=== PATIENT | female | born 1945 | race Caucasian/White ===

== ENCOUNTER 2020-04-26 18:56 | Inpatient (IN) | payer MEDICARE ==
[~2020-04-26] VITALS: Ht 167.6 cm; Wt 70.1 kg
[~2020-04-26 18:56] MED LIST: ACET325 PO; BUPR75; MEGE40T PO; METF500; MISO200 PO; Simvastatin20 MG PO; ZOLOFT50 MG PO
[2020-04-26 19:21] LABS: BASOPHILS ABSOLUTE AUTO 0.01 K/mm3 (0.00-0.23); BASOPHILS PERCENT AUTO 0 % (0-2); EOSINOPHILS ABSOLUTE AUTO 0.01 K/mm3 (0.00-0.68); EOSINOPHILS PERCENT AUTO 0 % (0-6); Hematocrit 40.7 % (33.0-51.0); Hemoglobin 13.5 g/dL (11.5-16.0); IMMATURE GRAN ABSOLUTE AUTO 0.06 K/mm3 (0.00-0.10); IMMATURE GRAN PERCENT AUTO 0 % (0-1); LYMPHOCYTES ABSOLUTE AUTO 0.69 K/mm3 (0.84-5.20); LYMPHOCYTES PERCENT AUTO 5 % (21-46); MONOCYTES ABSOLUTE AUTO 0.87 K/mm3 (0.16-1.47); MONOCYTES PERCENT AUTO 6 % (4-13); Mean Corpuscular HGB 29.6 pg (26.0-34.0); Mean Corpuscular HGB Conc 33.2 g/dL (31.5-36.5); Mean Corpuscular Volume 89 fL (80-100); Mean Platelet Volume 10.8 fL (9.1-12.4); NEUTROPHILS PERCENT AUTO 89 % (41-73); NRBC ABSOLUTE 0.05 K/mm3 (0.00-0.02); NRBC Auto 0.3 /100 WBC (0.0-0.2); Platelet Count 279 K/mm3 (150-400); RDW Standard Deviation 45.1 fL (35.1-46.3); Red Blood Cell Count 4.56 M/mm3 (3.80-5.20); White Blood Cell Count 14.44 K/mm3 (4.00-11.30)
[2020-04-26 19:37] LABS: Alanine Aminotransfer (ALT/SGP 66 U/L (12-78); Albumin, Blood 3.1 g/dL (3.4-5.0); Albumin/Globulin Ratio 0.9 (0.8-1.8); Alk Phos 35 U/L (50-136); Anion Gap 11 mmol/L (6-16); Aspartate Aminotrans (AST/SGOT 37 U/L (12-37); Bilirubin, Total 1.5 mg/dL (0.1-1.0); Blood Urea Nitrogen 28 mg/dL (8-24); Bun/Creatinine Ratio 32.6 (12.0-20.0); CO2, Blood 26 mmol/L (21-32); Calcium, Blood 10.2 mg/dL (8.5-10.1); Chloride, Blood 115 mmol/L (98-108); Creatinine, Blood 0.86 mg/dL (0.40-1.00); Globulin, Blood 3.5 g/dL (2.2-4.0); Glomerular Filtration Rate >60 (60-); Glucose, Blood 120 mg/dL (70-99); Potassium, Blood 3.5 mmol/L (3.5-5.5); Sodium, Blood 152 mmol/L (136-145); Total Protein, Blood 6.6 g/dL (6.4-8.2)
[2020-04-26 20:18] LABS: CPK Creatine Kinase 36 U/L (26-193); Ethanol (Alcohol), Blood, Med <3 mg/dL; Magnesium, Blood 2.6 mg/dL (1.6-2.4); Troponin I 0.018 ng/mL (0.000-0.040)
[2020-04-26 20:19] LABS: Creatine Kinase MB <1.0 ng/mL (0.0-3.6); Creatine Kinase MB Index Unable to Calculate (0.0-4.0)
[2020-04-26 21:06] LABS: Source, Urine Clean Catch
[2020-04-26 21:12] LABS: Appearance, Urine Hazy (Clear); Blood, Urine 1+ (Neg); Color, Urine Brown (P-Yellow); Glucose Qualitative, Urine Neg (Neg); Ketones, Urine 3+ (Neg); Leukocyte Esterase, Urine 1+ (Neg); Nitrite, Urine Pos (Neg); Protein, Urine 2+ (Neg); Urobilinogen, Urine 3+ (Normal)
[2020-04-26 21:13] LABS: Bilirubin, Urine 2+ (Neg)
[2020-04-26 21:23] LABS: Bacteria Mod /hpf; Squamous Epithelial Cells Rare /hpf (Few)
[2020-04-26 21:24] LABS: Amorphous Light (0-Heavy)
[2020-04-26 21:26] LABS: U Amphetamine Screen Not Detected; U Barbituate Screen Not Detected; U Benzodiazapine Screen Not Detected; U Buprenorphine Screen Not Detected; U Cannabinoids Screen Not Detected; U Cocaine Screen Not Detected; U Methadone Screen Not Detected; U Methamphetamine Screen Not Detected; U Opiates Screen Not Detected; U Oxycodone Screen Not Detected; U Phencyclidine Screen Not Detected; U Propoxyphene Screen Not Detected
[2020-04-26] MEDS ORDERED: BUPR100ER PO (21:31)
[2020-04-26] MEDS ORDERED: MEGESTROL400 MG/13 PO (21:32)
--- NOTE | 2020-04-27 05:48 | NUR ---
SHIFT SUMMARY- PT. NEW ADMISSION FROM ED. CONFUSED/AMS, VERY WEAK. FRIEND AND POA ASSISTED WITH ADMISSION HX. PT. ATTEMPTED TO GET OOB 1X LAST NIGHT, ASSISTED BACK INTO BED BY THIS NURSE AND MANAGER PRIMARY. PT. INCONT, ATTENDS IN PLACE. IV FLUIDS INFUSING, TOLERATING WELL. NO COMPLAINTS T/O THE NIGHT. PT. RESTING QUIETLY IN BED, NO APPARENT DISTRESS NOTED. CALL LIGHT WITHI REACH, SIDE RAILS UPX3, AND BED ALARM ON FOR SAFETY. WILL CONT TO MONITOR.
[2020-04-27 05:56] LABS: Alanine Aminotransfer (ALT/SGP 66 U/L (12-78); Albumin/Globulin Ratio 0.9 (0.8-1.8); Alk Phos 34 U/L (50-136); Anion Gap 8 mmol/L (6-16); Aspartate Aminotrans (AST/SGOT 34 U/L (12-37); Bilirubin, Total 1.3 mg/dL (0.1-1.0); Blood Urea Nitrogen 22 mg/dL (8-24); Bun/Creatinine Ratio 33.8 (12.0-20.0); CO2, Blood 26 mmol/L (21-32); Chloride, Blood 112 mmol/L (98-108); Creatinine, Blood 0.65 mg/dL (0.40-1.00); Globulin, Blood 3.3 g/dL (2.2-4.0); Glomerular Filtration Rate >60 (60-); Glucose, Blood 166 mg/dL (70-99); Potassium, Blood 2.7 mmol/L (3.5-5.5); Sodium, Blood 146 mmol/L (136-145); Total Protein, Blood 6.3 g/dL (6.4-8.2)
[2020-04-27 06:17] LABS: BASOPHILS ABSOLUTE AUTO 0.01 K/mm3 (0.00-0.23); BASOPHILS PERCENT AUTO 0 % (0-2); EOSINOPHILS ABSOLUTE AUTO 0.03 K/mm3 (0.00-0.68); EOSINOPHILS PERCENT AUTO 0 % (0-6); Hematocrit 38.6 % (33.0-51.0); IMMATURE GRAN ABSOLUTE AUTO 0.05 K/mm3 (0.00-0.10); IMMATURE GRAN PERCENT AUTO 0 % (0-1); LYMPHOCYTES ABSOLUTE AUTO 1.21 K/mm3 (0.84-5.20); LYMPHOCYTES PERCENT AUTO 9 % (21-46); MONOCYTES ABSOLUTE AUTO 0.67 K/mm3 (0.16-1.47); MONOCYTES PERCENT AUTO 5 % (4-13); Mean Corpuscular HGB 29.8 pg (26.0-34.0); Mean Corpuscular HGB Conc 33.7 g/dL (31.5-36.5); Mean Corpuscular Volume 89 fL (80-100); Mean Platelet Volume 10.9 fL (9.1-12.4); NEUTROPHILS ABSOLUTE AUTO 12.14 K/mm3 (1.96-9.15); NEUTROPHILS PERCENT AUTO 86 % (41-73); NRBC ABSOLUTE 0.02 K/mm3 (0.00-0.02); NRBC Auto 0.1 /100 WBC (0.0-0.2); Platelet Count 264 K/mm3 (150-400); RDW Coefficient Variation 13.9 % (11.7-14.2); RDW Standard Deviation 44.5 fL (35.1-46.3); Red Blood Cell Count 4.36 M/mm3 (3.80-5.20); White Blood Cell Count 14.11 K/mm3 (4.00-11.30)
[2020-04-27 08:14] LABS: Campylobacter Sp Not Detected (NOT DETECT)
[2020-04-27 08:15] LABS: Adenovirus F 40/41 Not Detected (NOT DETECT); Astrovirus Not Detected (NOT DETECT); Cryptosporidium Not Detected (NOT DETECT); Cyclospora Cayetanensis Not Detected (NOT DETECT); E. Coli O157 Not Detected (NOT DETECT); Entamoeba Histolytica Not Detected (NOT DETECT); Enteroaggregative E. coli-EAEC Not Detected (NOT DETECT); Enteropathogenic E. coli-EPEC Not Detected (NOT DETECT); Enterotoxigenic E. coli-ETEC Not Detected (NOT DETECT); Giardia Lamblia Not Detected (NOT DETECT); Norovirus GI/GII Not Detected (NOT DETECT); Plesiomonas Shigelloides Not Detected (NOT DETECT); Rotavirus A Not Detected (NOT DETECT); Salmonella Sp Not Detected (NOT DETECT); Sapovirus Not Detected (NOT DETECT); Shiga Toxin-prod E. coli-STEC Not Detected (NOT DETECT); Shigella/Enteroin E. coli-EIEC Not Detected (NOT DETECT); Vibrio Cholerae Not Detected (NOT DETECT); Vibrio Sp Not Detected (NOT DETECT); Yersinia Enterocolitica Not Detected (NOT DETECT)
[2020-04-27 10:53] LABS: Anion Gap 11 mmol/L (6-16); Blood Urea Nitrogen 18 mg/dL (8-24); Bun/Creatinine Ratio 27.4 (12.0-20.0); CO2, Blood 24 mmol/L (21-32); CPK Creatine Kinase 44 U/L (26-193); Calcium, Blood 8.8 mg/dL (8.5-10.1); Chloride, Blood 110 mmol/L (98-108); Creatinine, Blood 0.66 mg/dL (0.40-1.00); Glomerular Filtration Rate >60 (60-); Glucose, Blood 151 mg/dL (70-99); Potassium, Blood 3.2 mmol/L (3.5-5.5); Sodium, Blood 145 mmol/L (136-145)
--- NOTE | 2020-04-27 15:47 | NUR ---
SHIFT SUMMARY PT OPENS HER EYES TO HER NAME BUT IS NOT ALERT OR ORIENTED. SHE HAS BEEN SLEEPING ALL DAY. SHE HAS NO SIGNS OF PAIN OR DISTRESS. IV FLUIDS/MEDS INFUSED ORDERED WITH NO ISSUE. SHE HAS BEEN INC OF B/B THROUGHOUT THE SHIFT. HER POA/CAREGIVER HAS CALLED TWICE FOR AN UPDATE AND REPORTED THAT SHE HAS BEEN GETTING INCREASING WORSE OVER THE LAST FEW WEEKS WHICH IS WHAT PROMTED HER TO BRING HER TO THE ER. THE PT IS NOT ABLE TO MAKE HER NEEDS KNOWN, FREQUENT NURSE ROUNDING HAS BEEN DONE AND SHE HAS THE BED ALARM ON FOR SAFETY.
[2020-04-27 17:20] LABS: Anion Gap 11 mmol/L (6-16); Blood Urea Nitrogen 16 mg/dL (8-24); CO2, Blood 24 mmol/L (21-32); Calcium, Blood 9.2 mg/dL (8.5-10.1); Chloride, Blood 112 mmol/L (98-108); Creatinine, Blood 0.67 mg/dL (0.40-1.00); Glomerular Filtration Rate >60 (60-); Glucose, Blood 125 mg/dL (70-99); Sodium, Blood 147 mmol/L (136-145)
--- NOTE | 2020-04-27 21:23 | NUR ---
UNABLE TO GIVE PO MEDICATION AT BEDTIME PATIENT IS TOO SOMNOLENT. ONLY OPENING HER EYES TO LOUD VOICE AND GENTLE CHEST RUB, THEN TURNING HEAD BCK TO SIDE AND CLOSING HER EYES AGAIN. NON VERBAL DURING ASSESSMENT.
--- NOTE | 2020-04-28 00:57 | NUR ---
REPORT TO Shruthi ARCE RN WHO WILL BE ACCEPTING PATIENT INTO ROOM 329
--- NOTE | 2020-04-28 01:03 | NUR ---
PT TRANSERRED FROM SCU 348 TO RM 329. REPORT TAKEN FROM FLORESITA MOLINA RN TO ASSUME CARE OF PT AT THIS TIME. PT SLEEPING WITHOUT DISTRESS. PT TRANSERRED TO ROOM 329 WITHOUT EVENT. WILL CONTINUE TO MONITOR.
--- NOTE | 2020-04-28 05:10 | NUR ---
SHIFT SUMMARY PT TRANSFERRED FROM SCU RM 348 TO RM 329. ASSUMED CARE OF PT AT 0100. REPORT I RECEIVED FROM OFF GOING NURSE IS THAT PT HAS BEEN SOMNOLENT, BUT RESPONDS TO STERNAL RUB AND QUICKLY FALLS BACK TO SLEEP. AROUND 0300 I CALLED PT NAME SHE OPENED BOTH EYES AND RESPONDED. I ASKED PT IF SHE NEEDED ANYTHING AND SHE COHERENTLY REPLIED THAT SHE DID NOT. PT NEURO STATUS SEEMS TO BE IMPROVING. HOWEVER SHE STILL IS VERY DROWSY. VITALS ARE STABLE, AND THERE HAVE BEEN NO ACUTE CHANGES SINCE ASSUMING CARE. BED IN LOWEST POSITION, CALL LIGHT WITHIN REACH.
[2020-04-28 05:25] LABS: Anion Gap 12 mmol/L (6-16); Blood Urea Nitrogen 16 mg/dL (8-24); Bun/Creatinine Ratio 24.3 (12.0-20.0); CO2, Blood 22 mmol/L (21-32); Calcium, Blood 9.1 mg/dL (8.5-10.1); Chloride, Blood 111 mmol/L (98-108); Creatinine, Blood 0.66 mg/dL (0.40-1.00); Glomerular Filtration Rate >60 (60-); Glucose, Blood 108 mg/dL (70-99); Magnesium, Blood 2.1 mg/dL (1.6-2.4); Potassium, Blood 3.2 mmol/L (3.5-5.5); Sodium, Blood 145 mmol/L (136-145)
--- NOTE | 2020-04-28 11:54 | NUR ---
PTS FRIEND DIMAS INTO VISIT, REPORTS THAT PTS KATHRYN CLARK WILL BE INTO SEE PT TOMORROW.
--- NOTE | 2020-04-28 18:20 | NUR ---
SHIFT SUMMARY PT SLEPT MOST OF SHIFT, DOES AROUSE TO NAME AND OPENS EYES WHEN SPOKEN TO BUT QUICKLY FALLS BACK ASLEEP. WAS ABLE TO STATE NAME AND BIRTHDAY, AND REPLY NO OR YES TO A FEW QUESTIONS. DOESNT FOLLOW COMMANDS. ATTENDS AND POSITION CHANGED PRN. VSS. NO ACUTE CHANGES THIS SHIFT. PATIENTS MARC BUITRAGO CALLED THIS EVENING, SHE HAS ARRIVED INTO THE AREA AND WILL BE INTO VISIT TOMORROW. HER PHONE NUMBER IS [phone].
--- NOTE | 2020-04-29 04:49 | NUR ---
MACHINE SET UP OPERATOR SUMMARY PT A/O X1 TO SELF. PT HAS BEEN SOMNOLENT ALL SHIFT, HOWEVER AROUSIBLE TO SOUND. PT IS ABLE TO SHAKE HEAD FOR YES OR NO QUESTIONS AND MOANS WHENEVER REPOSITIONED. REPOSITIONED FREQUENTLY THROUGHOUT THE NIGHT. SHE DENIES PAIN BY SHAKING HER HEAD. VSS. NO ACUTE CHANGES.
[2020-04-29 06:01] LABS: Anion Gap 11 mmol/L (6-16); Blood Urea Nitrogen 17 mg/dL (8-24); Bun/Creatinine Ratio 23.7 (12.0-20.0); CO2, Blood 23 mmol/L (21-32); Calcium, Blood 9.1 mg/dL (8.5-10.1); Chloride, Blood 113 mmol/L (98-108); Creatinine, Blood 0.72 mg/dL (0.40-1.00); Glomerular Filtration Rate >60 (60-); Glucose, Blood 88 mg/dL (70-99); Potassium, Blood 3.3 mmol/L (3.5-5.5); Sodium, Blood 147 mmol/L (136-145)
--- NOTE | 2020-04-29 19:08 | NUR ---
SHIFT SUMMARY. PT UNRESPONSIIVE, MOANS AT TIMES, EYES MOSTLY CLOSED. PT IS INCONTINENT, TURNED Q2H. PT'S NEICE FROM OUT OF STATE IN TO SEE PT, SHE PRESENTED ADVANCED DIRECTIVE THAT SHOWS NO PORTABLE TRACK CREW CHIEF FEEDING TUBES, PT TO BE STARTED ON CLINIMIX. FAMILY IS REQUESTING THAT PT'S FRIEND DIMAS NOT HAVE ANY FURTHER INFORMATION RELEASED TO HER AT THIS TIME. PT AND NEICE SEEN BY CM THIS AFTERNOON. NO NEW CHANGES.
--- NOTE | 2020-04-29 21:09 | NUR ---
PHYSICIAN COMMUNICATION CONTACTED FUR DRESSING SUPERVISOR PHYSICIAN, DR POWELL, TO INFORM HIM THAT THE PATIENT HAD 1195 ML OF URINE IN HER BLADDER PER BLADDER SCAN AND TO ASK FOR A GUERRA CATHETER FOR THE PATIENT. DR POWELL ORDERED THE GUERRA.
[2020-04-29 22:43] LABS: Source, Urine Catheter
[2020-04-29 22:46] LABS: Bilirubin, Urine Neg (Neg); Blood, Urine 3+ (Neg); Glucose Qualitative, Urine Neg (Neg); Ketones, Urine 2+ (Neg); Leukocyte Esterase, Urine 1+ (Neg); Nitrite, Urine Neg (Neg); Protein, Urine 1+ (Neg); Urobilinogen, Urine NORM (Normal)
[2020-04-29 22:52] LABS: Appearance, Urine Clear (Clear); Color, Urine Amber (P-Yellow)
[2020-04-29 22:53] LABS: Amorphous Light (0-Heavy); Bacteria Few /hpf; Mucus Light (0-Heavy); Squamous Epithelial Cells Not Seen /hpf (Few)
[2020-04-30 05:09] LABS: Anion Gap 8 mmol/L (6-16); Blood Urea Nitrogen 16 mg/dL (8-24); Bun/Creatinine Ratio 26.1 (12.0-20.0); CO2, Blood 28 mmol/L (21-32); Chloride, Blood 110 mmol/L (98-108); Creatinine, Blood 0.61 mg/dL (0.40-1.00); Glomerular Filtration Rate >60 (60-); Glucose, Blood 172 mg/dL (70-99); Magnesium, Blood 2.2 mg/dL (1.6-2.4); Phosphorus, Blood 2.6 mg/dL (2.5-4.9); Potassium, Blood 3.2 mmol/L (3.5-5.5); Sodium, Blood 146 mmol/L (136-145)
--- NOTE | 2020-04-30 06:45 | NUR ---
SHIFT SUMMARY PATIENT IS MINIMALLY RESPONSIVE. WILL RESPOND TO PAIN AND COLD, AND OCCASIONALLY WHEN MORE ALERT CAN NOD YES OR NO. GUERRA CATHETER INSERTED DUE TO URINE RETENTION. PATIENT REPOSITIONED REGULARLY TO PREVENT SKIN BREAKDOWN. IV PATENT AND INFUSING. BED IN LOWEST POSITION WITH WHEELS LOCKED AND ALARM ON. CALL LIGHT WITHIN REACH. REPORT GIVEN TO ONCOMING RN.
--- NOTE | 2020-04-30 18:17 | NUR ---
SHIFT SUMMARY. PT MORE ALERT THIS SHIFT, ANSWERING SIMPLE QUESTIONS AT TIMES WITH "MHMM'S." NEICE AT BEDSIDE THIS AFTERNOON. GUERRA CATHETER PATENT AND DRAINING, URINE LESS DARK TODAY COMPARED TO YESTERDAY. IV KCL 60 MEQ INFUSED, IV CLINIMIX WITH LIPDS CONTINUES TO INFUSE. PT DENIES PAIN, NO S/SX OF DISTRESS OR DISCOMFORT. NO SOB. CONTINUES WITH NPO, ST EVAL TOMORROW. NO OTHER CHANGES OR CONCERNS.
[2020-05-01 05:50] LABS: Anion Gap 8 mmol/L (6-16); Blood Urea Nitrogen 18 mg/dL (8-24); Bun/Creatinine Ratio 35.3 (12.0-20.0); CO2, Blood 26 mmol/L (21-32); Calcium, Blood 8.9 mg/dL (8.5-10.1); Chloride, Blood 106 mmol/L (98-108); Creatinine, Blood 0.51 mg/dL (0.40-1.00); Glomerular Filtration Rate >60 (60-); Glucose, Blood 224 mg/dL (70-99); Magnesium, Blood 2.1 mg/dL (1.6-2.4); Phosphorus, Blood 3.4 mg/dL (2.5-4.9); Potassium, Blood 3.6 mmol/L (3.5-5.5); Sodium, Blood 140 mmol/L (136-145)
--- NOTE | 2020-05-01 07:34 | NUR ---
INSTRUCTOR PRIVATE SUMMARY Patient continues to be more responsive overnight. She will turn her head towards voice, and answer most s imple questions with a nod yes or no. No stools overnight, however, it was noted this morning that her urine looks more concentrated than last evening. Discussed with oncoming RN that patient could benefit from tylenol in suppository form. Skin remains intact
[2020-05-01 09:24] LABS: BASOPHILS ABSOLUTE AUTO 0.02 K/mm3 (0.00-0.23); BASOPHILS PERCENT AUTO 0 % (0-2); EOSINOPHILS ABSOLUTE AUTO 0.05 K/mm3 (0.00-0.68); EOSINOPHILS PERCENT AUTO 0 % (0-6); Hematocrit 38.1 % (33.0-51.0); Hemoglobin 12.6 g/dL (11.5-16.0); IMMATURE GRAN ABSOLUTE AUTO 0.16 K/mm3 (0.00-0.10); IMMATURE GRAN PERCENT AUTO 1 % (0-1); LYMPHOCYTES ABSOLUTE AUTO 0.76 K/mm3 (0.84-5.20); LYMPHOCYTES PERCENT AUTO 5 % (21-46); MONOCYTES ABSOLUTE AUTO 0.97 K/mm3 (0.16-1.47); MONOCYTES PERCENT AUTO 7 % (4-13); Mean Corpuscular HGB 29.3 pg (26.0-34.0); Mean Corpuscular HGB Conc 33.1 g/dL (31.5-36.5); Mean Corpuscular Volume 89 fL (80-100); Mean Platelet Volume 11.2 fL (9.1-12.4); NEUTROPHILS ABSOLUTE AUTO 12.72 K/mm3 (1.96-9.15); NEUTROPHILS PERCENT AUTO 87 % (41-73); NRBC ABSOLUTE 0.03 K/mm3 (0.00-0.02); NRBC Auto 0.2 /100 WBC (0.0-0.2); Platelet Count 218 K/mm3 (150-400); RDW Standard Deviation 44.7 fL (35.1-46.3); White Blood Cell Count 14.68 K/mm3 (4.00-11.30)
--- NOTE | 2020-05-01 18:19 | NUR ---
SHIFT SUMMARY- PT SLEPT FOR MOST OF THIS SHIFT. SHE DID OPEN HER EYES OCCASIONALLY WHEN MOVING HER OR CHANGING HER. HER NEICE WAS IN TO VISIT FOR SEVERAL HOURS THIS SHIFT. ORAL CARE PREFORMED. SHE RECIEVED BOWEL CARE. PLACED AN ADDITIONAL IV TO RUN FLUIDS. HER LIPASE WAS ELEVATED TODAY. PT DID HAVE ONE BOUT OF DARK COLORED EMESIS. HELD LOVONOX. NOTIFIED DR. LUNDBERG.
[2020-05-02 05:12] LABS: BASOPHILS ABSOLUTE AUTO 0.07 K/mm3 (0.00-0.23); BASOPHILS PERCENT AUTO 0 % (0-2); EOSINOPHILS ABSOLUTE AUTO 0.05 K/mm3 (0.00-0.68); EOSINOPHILS PERCENT AUTO 0 % (0-6); Hematocrit 36.2 % (33.0-51.0); Hemoglobin 11.9 g/dL (11.5-16.0); IMMATURE GRAN ABSOLUTE AUTO 0.35 K/mm3 (0.00-0.10); IMMATURE GRAN PERCENT AUTO 2 % (0-1); LYMPHOCYTES ABSOLUTE AUTO 0.94 K/mm3 (0.84-5.20); LYMPHOCYTES PERCENT AUTO 6 % (21-46); MONOCYTES ABSOLUTE AUTO 1.32 K/mm3 (0.16-1.47); MONOCYTES PERCENT AUTO 9 % (4-13); Mean Corpuscular HGB 29.4 pg (26.0-34.0); Mean Corpuscular HGB Conc 32.9 g/dL (31.5-36.5); Mean Corpuscular Volume 89 fL (80-100); Mean Platelet Volume 11.6 fL (9.1-12.4); NEUTROPHILS ABSOLUTE AUTO 12.89 K/mm3 (1.96-9.15); NEUTROPHILS PERCENT AUTO 83 % (41-73); NRBC ABSOLUTE 0.05 K/mm3 (0.00-0.02); NRBC Auto 0.3 /100 WBC (0.0-0.2); Platelet Count 190 K/mm3 (150-400); RDW Coefficient Variation 13.8 % (11.7-14.2); RDW Standard Deviation 44.8 fL (35.1-46.3); Red Blood Cell Count 4.05 M/mm3 (3.80-5.20); White Blood Cell Count 15.62 K/mm3 (4.00-11.30)
[2020-05-02 05:31] LABS: Alanine Aminotransfer (ALT/SGP 45 U/L (12-78); Albumin, Blood 1.9 g/dL (3.4-5.0); Albumin/Globulin Ratio 0.5 (0.8-1.8); Alk Phos 56 U/L (50-136); Anion Gap 7 mmol/L (6-16); Aspartate Aminotrans (AST/SGOT 37 U/L (12-37); Bilirubin, Total 1.1 mg/dL (0.1-1.0); Blood Urea Nitrogen 19 mg/dL (8-24); Bun/Creatinine Ratio 37.9 (12.0-20.0); CO2, Blood 26 mmol/L (21-32); Calcium, Blood 8.6 mg/dL (8.5-10.1); Chloride, Blood 106 mmol/L (98-108); Globulin, Blood 4.1 g/dL (2.2-4.0); Glomerular Filtration Rate >60 (60-); Glucose, Blood 243 mg/dL (70-99); Magnesium, Blood 2.3 mg/dL (1.6-2.4); Phosphorus, Blood 3.4 mg/dL (2.5-4.9); Potassium, Blood 3.6 mmol/L (3.5-5.5); Sodium, Blood 139 mmol/L (136-145)
--- NOTE | 2020-05-02 06:44 | NUR ---
PROFESSOR OF PSYCHOLOGY SUMMARY Patient remains extremely somnolent. However, she is moving around more in her sleep and moaning. When asked if she is in pain, she either closes hew eyes and shakes her head no, or actually opens her eyes and says no. Clarita had large mucousy stool last night around 2400. After she was cleaned up and turned, she had no further stools and appeared to relax for the remainder of the night.
--- NOTE | 2020-05-02 17:54 | NUR ---
SHIFT SUMMAY- PT HAS SLEPT FOR THE DURATION OF THIS SHIFT. SHE IS ON IV NUTRITION. HER NEICE WAS AT THE BEDSIDE FOR MOST OF THIS SHIFT.
--- NOTE | 2020-05-02 18:17 | NUR ---
Nursing request for consult due to possible needs for more asisitance for advancing disease. Nursing expresses concern for family not caring for pt.
[2020-05-03 05:10] LABS: Hematocrit 32.3 % (33.0-51.0); Hemoglobin 10.4 g/dL (11.5-16.0); Mean Corpuscular HGB 29.1 pg (26.0-34.0); Mean Corpuscular HGB Conc 32.2 g/dL (31.5-36.5); Mean Corpuscular Volume 91 fL (80-100); Mean Platelet Volume 11.5 fL (9.1-12.4); NRBC ABSOLUTE 0.04 K/mm3 (0.00-0.02); NRBC Auto 0.3 /100 WBC (0.0-0.2); Platelet Count 167 K/mm3 (150-400); RDW Coefficient Variation 13.8 % (11.7-14.2); RDW Standard Deviation 45.4 fL (35.1-46.3); Red Blood Cell Count 3.57 M/mm3 (3.80-5.20); White Blood Cell Count 13.09 K/mm3 (4.00-11.30)
[2020-05-03 06:02] LABS: Albumin, Blood 1.7 g/dL (3.4-5.0); Anion Gap 8 mmol/L (6-16); Blood Urea Nitrogen 22 mg/dL (8-24); Bun/Creatinine Ratio 38.4 (12.0-20.0); CO2, Blood 22 mmol/L (21-32); Calcium, Blood 8.8 mg/dL (8.5-10.1); Chloride, Blood 109 mmol/L (98-108); Creatinine, Blood 0.57 mg/dL (0.40-1.00); Glomerular Filtration Rate >60 (60-); Glucose, Blood 267 mg/dL (70-99); Phosphorus, Blood 3.3 mg/dL (2.5-4.9); Potassium, Blood 3.9 mmol/L (3.5-5.5); Sodium, Blood 139 mmol/L (136-145); Thyroid Stimulating Hormone 0.997 uIU/mL (0.360-4.800)
--- NOTE | 2020-05-03 16:25 | NUR ---
Met with Estephania, pt's niece, at Clarita's bedside. Estephania reports that her Aunt Clarita does not have any children. She lives alone, has a accounts receivable coordinator and was found down at home prior to her admission. Estephania reports her brother, Jutsen, who lives in [place] has POA for Clarita. Estephania states she has 3 siblings and they all have been in contact with each other trying to determine the best course of action for their aunt. They have a zoom meeting planning for 5 pm this evening. Estephania expresses concerns about pt's accounts receivable coordinator and states that she has been in contact with [facility] to voice her concerns about Clarita's accounts receivable coordinator. Estephania reports that the family is working on getting an emergency guardianship for their aunt. Estephania states her brother, Justen, has previously assisted his aunt with paying bills and helping her make decisions re: her care. A consult for Dr. Woodall has been ordered to help determine a cause for shala's current condition. Estephania reports she last spoke with her aunt about three weeks ago at which time she reports that she sounded like her usual self but forgetful. Estephania states that they have suspected that Clarita may have some dementia. Estephania reports other family members have had Alzheimers. Estephania plans to update her siblings on Clarita's condition. Will await Dr. Woodall's evaluation. Estephania states that she may request a family meeting with PC, CM and doctor if available to determine a plan going forward in the coming days. Currently Clarita is a full code. Estephania states that Clarita has an AD which states no penitentiary life support. Estephania is not aware of Clarita having a POLST form. PC will continue to follow. Clarita did wake at end of visit, she doesn't respond verbally to questions. Repositioned her to her back per her niece's request. Nursing updated.
--- NOTE | 2020-05-03 18:37 | NUR ---
SHIFT SUMMARY MEDARDO WAS MINIMALLY RESPONSIVE TODAY. SHE OPENS HER EYES TO HER NAME, BUT DOESN'T FOLLOW COMMANDS. SHE CAN NOD YES/NO AT TIMES. NIECE AT BEDSIDE TODAY. NPO, UNABLE TO PARTICIPATE WITH RECORDING STUDIO SETUP WORKER. GUERRA PATENT AND DRAINING. CLINIMIX AND LIPIDS RUNNING. PSYCH CONSULTED, BUT SPENSER IS OUT OF TOWN UNTIL SUNDAY. PALLIATIVE ON BOARD. Q2 TURN. R ABD TENDERNESS WITH PALPATION, GOT SCHEDULED TORADOL AND TYLENOL SUPPOSITORY. WCTM
--- NOTE | 2020-05-03 23:01 | NUR ---
4255 PT LYING IN BED, PT IS NONVERBAL, NO APPARENT SIGNS OF DISTRESS. ASSISTED LABOR MEDIATOR TO TURN AND CHANGE PT. TELE NOT ON AT THIS TIME BUT WILL GET TELE ON AND GET RYTHYM. GUERRA WITH CLEAR YELLOW URINE.
--- NOTE | 2020-05-03 23:03 | NUR ---
TELE IS ON AND IS NSR AT 84 PER PLAYGROUND MONITOR. PT IS LYING IN BED, EYES CLOSED, APPEARS TO BE RESTING. BREATHING IS EVEN, UNLABORED. NO APPARENT SIGNS OF DISTRESS. CALL LIGHT IS IN REACH. BED ALARM IS ON.
--- NOTE | 2020-05-04 01:59 | NUR ---
ASSISTED PAPER TESTING SUPERVISOR IN TURNING PT, NO APPARENT SIGNS OF DISTRESS. CALL LIGHT IS IN REACH. BED ALARM IS ON.
--- NOTE | 2020-05-04 01:59 | NUR ---
0000 ASSISTED LEAD SUPPLY WORKER IN TURNING PT, NO APPARENT SIGNS OF DISTRESS. CALL LIGHT IS IN REACH. BED ALARM IS ON.
--- NOTE | 2020-05-04 04:34 | NUR ---
PT IS NONVERBAL. NO APPARENT SIGNS OF DISTRESS THROUGHOUT THE SHIFT. TELE NSR. GUERRA WITH CLEAR YELLOW URINE.
--- NOTE | 2020-05-04 04:34 | NUR ---
ASSISTED MANAGER ASSEMBLY IN TURNING PT. NO APPARENT SIGNS OF DISTRESS. CALL LIGHT IS IN REACH. BED ALARM IS ON.
[2020-05-04 05:10] LABS: Hematocrit 28.5 % (33.0-51.0); Hemoglobin 9.4 g/dL (11.5-16.0); Mean Corpuscular HGB 29.3 pg (26.0-34.0); Mean Corpuscular Volume 89 fL (80-100); Mean Platelet Volume 11.9 fL (9.1-12.4); NRBC ABSOLUTE 0.05 K/mm3 (0.00-0.02); NRBC Auto 0.4 /100 WBC (0.0-0.2); Platelet Count 201 K/mm3 (150-400); RDW Coefficient Variation 14.1 % (11.7-14.2); RDW Standard Deviation 44.7 fL (35.1-46.3); Red Blood Cell Count 3.21 M/mm3 (3.80-5.20); White Blood Cell Count 12.67 K/mm3 (4.00-11.30)
[2020-05-04 05:34] LABS: Albumin, Blood 1.7 g/dL (3.4-5.0); Anion Gap 9 mmol/L (6-16); Blood Urea Nitrogen 19 mg/dL (8-24); Bun/Creatinine Ratio 35.3 (12.0-20.0); CO2, Blood 22 mmol/L (21-32); Calcium, Blood 8.8 mg/dL (8.5-10.1); Chloride, Blood 109 mmol/L (98-108); Creatinine, Blood 0.54 mg/dL (0.40-1.00); Glomerular Filtration Rate >60 (60-); Glucose, Blood 264 mg/dL (70-99); Phosphorus, Blood 3.2 mg/dL (2.5-4.9); Potassium, Blood 3.5 mmol/L (3.5-5.5); Sodium, Blood 140 mmol/L (136-145)
--- NOTE | 2020-05-04 06:23 | NUR ---
ASSISTED CUSTOMER SERVICE SUPERVISOR IN TURNING AND CHANGING PT. NO APPARENT SIGNS OF DISTRESS. CALL LIGHT IS IN REACH. NO OTHER CHANGES THIS SHIFT.
--- NOTE | 2020-05-04 18:06 | NUR ---
Initial spiritual care note: I met with Clarita's friend at bedside. Clarita appeared to be sleeping throughout conversation and awakens slightly to voice. Clarita has an Advanced Directive from 2012 which states no heroic measures if there is no hope for meaningful recovery. Her nephew, Justen, is listed as MPOA. Friend states there is "pink paper" on pt's refrigerator at home. She will ask pt's niece to bring this in tomorrow. Pt has a sister. Niece and nephew both live out of state. Friend had questions about who could make medical decisions on pt's behalf. Informed her of pt's 2012 AD naming Justen as MPOA. Friend said she was relieved b/c she "did not want that responsibility." According to friend, Clarita has been having falls at home and has been forgetful. I provided personal counselor and theraputic listening. Complimented friend on her devotion to Clarita. Friend appeared satisfied by conclusion of visit. I will remain available.
--- NOTE | 2020-05-04 18:51 | NUR ---
SHIFT SUMMARY MEDARDO WAS MORE AWAKE THIS AFTERNOON THAN SHE HAS BEEN IN THE LAST COUPLE OF DAYS. ANSWERS SOME QUESTIONS WITH YES/NO, BUT EYES OPEN FOR A GOOD 10 MINUTES DURING ATTEMPTS AT CONVERSATION THIS AFTERNOON. HER FRIEND DIMAS AT BEDSIDE THIS SHIFT. PALLIATIVE CARE CAME. STILL NPO. GUERRA CARE DONE, GUERRA PATENT AND DRAINING. 2 SM BM THIS SHIFT DARK GREEN INCONTINENT. Q2 TURN DONE. NEW PIVS PLACED HER OLD ONES WENT BAD. CBGS Q6 NOW WITH INSULIN SCHEDULED. DENIED PAIN WITH A SHAKE OF HER HEAD.
[2020-05-05 05:21] LABS: Hematocrit 29.5 % (33.0-51.0); Hemoglobin 9.5 g/dL (11.5-16.0); Mean Corpuscular HGB 28.7 pg (26.0-34.0); Mean Corpuscular HGB Conc 32.2 g/dL (31.5-36.5); Mean Corpuscular Volume 89 fL (80-100); Mean Platelet Volume 11.6 fL (9.1-12.4); NRBC ABSOLUTE 0.05 K/mm3 (0.00-0.02); NRBC Auto 0.4 /100 WBC (0.0-0.2); Platelet Count 261 K/mm3 (150-400); RDW Coefficient Variation 14.4 % (11.7-14.2); RDW Standard Deviation 46.4 fL (35.1-46.3); Red Blood Cell Count 3.31 M/mm3 (3.80-5.20); White Blood Cell Count 12.69 K/mm3 (4.00-11.30)
[2020-05-05 05:36] LABS: Albumin, Blood 1.6 g/dL (3.4-5.0); Anion Gap 9 mmol/L (6-16); Blood Urea Nitrogen 21 mg/dL (8-24); Bun/Creatinine Ratio 35.7 (12.0-20.0); CO2, Blood 23 mmol/L (21-32); Calcium, Blood 8.9 mg/dL (8.5-10.1); Chloride, Blood 110 mmol/L (98-108); Creatinine, Blood 0.59 mg/dL (0.40-1.00); Glomerular Filtration Rate >60 (60-); Glucose, Blood 211 mg/dL (70-99); Phosphorus, Blood 3.3 mg/dL (2.5-4.9); Potassium, Blood 3.5 mmol/L (3.5-5.5); Sodium, Blood 142 mmol/L (136-145)
--- NOTE | 2020-05-05 06:05 | NUR ---
Rn summary: Patient arouses easily, but has minimal verbal response. Pt will nod yes and no. Pt does seem to have increased agitation with any touch of her body, just to move her arm or give an insulin shot she cries out, acts distressed. Pt denies pain when asked however. Pt has been repositioned with pillows. She kicks off blankets but states no she is not hot. Pt is getting clinamix, she is NPO and has Q6 hour blood sugars. Pt has received insulin coverage x2 this shift. Harden with 1200 cc out. Call light is in reach. Will continue to monitor.
--- NOTE | 2020-05-05 18:25 | NUR ---
SHIFT SUMMARY PT A/O X2 AND MOSTLY NONVERBAL THIS SHIFT. PT IS ABLE TO NOD YES/NO AT TIMES AND SOMETIMES ABLE TO VERBALIZE. PT'S NIECE AT BEDSIDE TWICE TODAY. S.T. TRIED TO SEE PT BUT WAS UNABLE TO ASSESS. CURRENTLY NPO. GETTING CLINIMIX AND LIPIDS. PT APPEARS TO BE IN DISTRESS WHEN TOUCHED BUT DENIES PAIN WHEN ASKED. MEDICATED FOR PAIN PER EMR. DR SOLIS SAW THE PT TODAY. Q6 GLUCOSE CHECKS AND HAS REQUIRED INSULIN COVERAGE TWICE THIS SHIFT. GUERRA PATENT AND DRAINING AND INCONT OF BOWEL. LOOSE GREEN/BLACK STOOLS. Q2 TURN AND CHANGE. WILL CONTINUE TO MONITOR.
--- NOTE | 2020-05-06 04:46 | NUR ---
SHIFT SUMMARY ASSUMED CARE OF PT AT 1900. PT HAS BEEN SLEEPING T/O THE SHIFT. PT AWOKE A COUPLE TIMES BUT STARED WITH A BLANK LOOK. HEART SOUNDS REGULAR, LUNG SOUNDS CLEAR. PT HAD VERY LOOSE DARK STOOL THIS PM, HOSPITALIST ORDERED HBG/HCT FOR AM AND TO MONITOR LOOSE STOOLS. CATHETER DRAINING CLEAR YELLOW URINE. NO ACUTE EVENTS DURING THE NIGHT. PT SLEPT T/O THE NIGHT. CALL LIGHT IN REACH, BED IN LOWEST POSTION.
[2020-05-06 05:20] LABS: Hematocrit 27.7 % (33.0-51.0); Hemoglobin 9.1 g/dL (11.5-16.0); Mean Corpuscular HGB 29.3 pg (26.0-34.0); Mean Corpuscular HGB Conc 32.9 g/dL (31.5-36.5); Mean Corpuscular Volume 89 fL (80-100); Mean Platelet Volume 10.7 fL (9.1-12.4); NRBC ABSOLUTE 0.03 K/mm3 (0.00-0.02); NRBC Auto 0.2 /100 WBC (0.0-0.2); Platelet Count 273 K/mm3 (150-400); RDW Coefficient Variation 14.6 % (11.7-14.2); Red Blood Cell Count 3.11 M/mm3 (3.80-5.20); White Blood Cell Count 12.77 K/mm3 (4.00-11.30)
[2020-05-06 05:43] LABS: Anion Gap 8 mmol/L (6-16); Blood Urea Nitrogen 21 mg/dL (8-24); CO2, Blood 23 mmol/L (21-32); Calcium, Blood 8.6 mg/dL (8.5-10.1); Chloride, Blood 109 mmol/L (98-108); Creatinine, Blood 0.54 mg/dL (0.40-1.00); Glomerular Filtration Rate >60 (60-); Glucose, Blood 243 mg/dL (70-99); Potassium, Blood 3.6 mmol/L (3.5-5.5); Sodium, Blood 140 mmol/L (136-145)
--- NOTE | 2020-05-06 13:13 | NUR ---
Stopped in to check on Clarita today. She was sleeping when this sign writer letterer or painter entered the room. She opened her eyes to voice and she answered by nodding to yes/no questions. No verbal responses given per pt. She appears to be comfortable at this time. Returned to room approximately 45 minutes later and pt's niece, Estephania, was at the bedside. Estephania reports she spoke with Dr. Andres last evening and was updated. Estephania has no questions at this time. Clarita is awake during this visit. She speaks in 1-2 word sentences when Estephania asks her questions related to Clarita's comfort. Clarita closes her eyes and appears to fall back to sleep easily when spoken to. Will continue to monitor. Rec'd an update from nursing.
--- NOTE | 2020-05-06 18:28 | NUR ---
SHIFT SUMMARY- PT HAS SLEPT FOR MOST OF THIS SHIFT. SHE HAS SOME SHORT SENTENCE ANSWERS WHEN ASKED QUESTIONS. SHE IT RECIEVING IV NUTRITION. SPEECH THERAPY ATTEMPTED TO WORK WITH THE PT AND PREFORMED ORAL CARE. HER NEICE WAS IN TO VISIT FOR MOST OF THIS SHIFT.
--- NOTE | 2020-05-07 03:36 | NUR ---
SUMMARY NO NEW ISSUES NOTED. PT HAD NOTED LARGE BROWN LOOSE STOOL. NO BINH BLOOD NOTED. PT HAS BEEN SLEEPING MOST OF SHIFT AND ONLY RESPONDES DURING CHANGING. PT CURRENTLY SLEEPING AND BREATHING EASY. GUERRA DRAINING EASILY. CALL LIGHT IN REACH AND BED ALARM ON.
[2020-05-07 04:51] LABS: Hematocrit 27.6 % (33.0-51.0); Hemoglobin 9.1 g/dL (11.5-16.0); Mean Corpuscular HGB 29.4 pg (26.0-34.0); Mean Corpuscular Volume 89 fL (80-100); NRBC ABSOLUTE 0.02 K/mm3 (0.00-0.02); NRBC Auto 0.1 /100 WBC (0.0-0.2); Platelet Count 304 K/mm3 (150-400); RDW Coefficient Variation 14.8 % (11.7-14.2); RDW Standard Deviation 47.8 fL (35.1-46.3); Red Blood Cell Count 3.09 M/mm3 (3.80-5.20); White Blood Cell Count 14.88 K/mm3 (4.00-11.30)
[2020-05-07 05:11] LABS: Albumin, Blood 1.5 g/dL (3.4-5.0); Anion Gap 6 mmol/L (6-16); Blood Urea Nitrogen 21 mg/dL (8-24); Bun/Creatinine Ratio 40.3 (12.0-20.0); CO2, Blood 25 mmol/L (21-32); Calcium, Blood 8.9 mg/dL (8.5-10.1); Chloride, Blood 109 mmol/L (98-108); Creatinine, Blood 0.52 mg/dL (0.40-1.00); Glomerular Filtration Rate >60 (60-); Glucose, Blood 243 mg/dL (70-99); Phosphorus, Blood 3.6 mg/dL (2.5-4.9); Potassium, Blood 3.9 mmol/L (3.5-5.5); Sodium, Blood 140 mmol/L (136-145)
--- NOTE | 2020-05-07 17:45 | NUR ---
Comfort Care: Pt placed on comfort measures today with a hospice diagnosis of dementia. Her yevgeniy is at bedside. Hospice services, medications, philosophy discussed. Medical equipment and supply are reviewed. Yevgeniy is visiting from out of town. Pt has other relatives that are assisting with decision making for her. Review of comfort care plan, end of life changes, symptom managment. Family thanks me for my time.
--- NOTE | 2020-05-07 18:17 | NUR ---
SHIFT SUMMARY- PT SLEPT FOR MOST OF THIS SHIFT. HER NEICE WAS IN TO VISIT FOR A MOST OF THE DAY. DECISION WAS MADE TO TRANSITION PT TO COMFORT CARE THIS AFTERNOON. D/C IV NUTRITION. DIFFICULT TO PREFORM ORAL CARE TO PT. SHE HAS A GUERRA IN PLACE, PATIENT AND DRAINING.
--- NOTE | 2020-05-08 03:52 | NUR ---
MEMBERSHIP ASSISTANT SUMMARY PT APPEARED RESTLESS AT THE START OF THE SHIFT HOWEVER AN ATTEMPT TO GIVE HER IV ATIVAN IFOUND THAT NEITHER OF HER IV'S PER PATENT. IV'S WERE DC'D AND SC ROXANOL WAS GIVEN HOWEVER THE PT ATTEMPTED TO SPIT OUT THE LIQUID AFTER IT WAS GIVEN. PT REMAINED MOSTLY NONVERBAL BUT WOULD SAY NO WHEN ASKED IF SHE NEEDED PAIN MEDICATION. PT HAD ONE INCONTINENT BOWEL MOVEMENT. PT SLEPT FOR A GOOD PORTION OF THE SHIFT COMFORTABLY.
--- NOTE | 2020-05-08 07:39 | NUR ---
PT RESTING COMFORTABLY WITH NO S/SX OF DISTRESS OR DISCOMFORT, APPEARS TO BE SLEEPING, BREATHING NON LABORED.
--- NOTE | 2020-05-08 10:00 | NUR ---
Comfort Care: Pt is resting comfortably at this time. Arousing with soft shoulder touch and gentle voice cues. Assessment appears to disturb her- small grimace on face. Recommend ativan to assist with troubling thoughts, and roxanol premedication for turning, as pt shows signs of discomfort when touched. Medications reviewed and appear appropriate.
--- NOTE | 2020-05-08 17:15 | NUR ---
SHIFT SUMMARY. PT RESTING QUIETLY IN BED THIS SHIFT. PT DENIED PAIN, N/V, HUNGER, AND THIRST. ORAL CARE ATTEMPTED, PT CLENCHES DOWN MOST OF THE TIME. INCONTINENCE CARE AND REPOSITIONING OCCURED ROUTINELY. NO S/SX OF DISCOMFORT OR DISTRESS. NO FAMILY IN TO VISIT THIS SHIFT. NO NEW CHANGES OR CONCERNS.
--- NOTE | 2020-05-09 04:34 | NUR ---
POWER TOOL REPAIRER SUMMARY PT IS MUCH MORE VERBAL TONIGHT COMPARED TO PREVIOUS NIGHT. PT WAS HAVING PAIN THIS EVENING AND REQUESTED PAIN MEDICATION FOR THE FIRST TIME WITH OUT SPITTING IT OUT. PT SLEPT COMFORTABLY FOR MOST OF THE SHIFT.
--- NOTE | 2020-05-09 10:30 | NUR ---
1030 Shweta BOSS FROM THE COURTS IN TO VISIT PT IN REGARDS TO [employer]Y [employer], MR. BOSS PRESENTED THIS RN WITH HIS BUSSINESS CARD, IT IS PLACED ON THE FRONT OF THE CHART.
--- NOTE | 2020-05-09 10:59 | NUR ---
Comfort Care: Pt is resting comfortably at this time. Indu has just gotten here for the day after spending yesterday readying the pt's home for hospice services. She is asking about [facility] and what time she will be here. Nurse present and reviewing care management notes. Palliative care to remain availble to answer questions regarding hospice services and symptom management. Reinforce medication teaching as needed.
--- NOTE | 2020-05-09 17:32 | NUR ---
SHIFT SUMMARY. PT WITH NO S/SX OF DISTRESS OR DISCOMFORT. CATHETER PATENT AND DRAINING, URINE DARK AND OUTPUT IS DECREASING. PT MOSTLY LETHARGIC, AWAKENS BREIFLY DURING CARE. ROUTINE REPOSITIONING PERFORMED. PT SINCHES DOWN MOUTH WHEN ATTEMPTING ORAL CARE MOST OF THE TIME. PT'S REGLAAMANDA EDUARDO IN TO VISIT THIS AFTERNOON, HARD SCRIPTS FOR ROXONOL AND ATIVAN GIVEN SO SHE CAN FILL TODAY. PLAN IS FOR PT TO D/C HOME WITH HOSPICE UNDER REGLAAMANDA'S CARE TOMORROW. SPOKE WITH [facility] NURSE AND SHE REPORTED THAT EQUIPMENT WILL BE DELIVERED IN AM AND PT WILL BE ADMITTED TO HOSPICE THERAFTER. NO OTHER CHANGES OR CONCERNS.
--- NOTE | 2020-05-10 04:00 | NUR ---
YARN WEIGHT AND STRENGTH TESTER SUMMARY PT HAS RESTED COMFORTABLY IN BED FOR MOST OF THE NIGHT. PT REQUESTED PAIN MEDICATION ONCE DURING THE NIGHT AFTER REPOSITIONING. PT WAS MEDICATED PER EMAR AND HAS RESTED COMFORTABLY W NO SIGNS OF DISTRESS.
[2020-05-10] MEDS ORDERED: MORP20L SL (10:59)
[2020-05-10] MEDS ORDERED: Ativan1 MG PO (11:00)
--- NOTE | 2020-05-10 11:45 | NUR ---
PT ALERT TO SPEAK. STATES PAIN GONE SINCE MEDICATED. TOLD HER GOING HOME. SHE STATES GOOD. ANSWERED SOME QUESTIONS. VERY QUIET. STATES NO CONCERNS. BED IN LOW POSITION, CALL LITE IN REACH, BED ALARM ON FOR SAFETY. BED BATH RECENTLY DONE BY CARLOS A THIS AM.
--- NOTE | 2020-05-10 12:48 | NUR ---
DISCHARGE SNT HOME WITH TRANSPORT. PT COMFORT CARE AND UNDABLE TO SIGN. NO IV NO TELE. PT OUT WITH TRANSPORT AT 1248
--- NOTE | 2020-05-10 16:28 | NUR ---
Spiritual care note: Clarita was sleeping soundly. She awakend to presence. Clarita denied pain/concerns and went back to sleep quickly. She appeared well cared-for by nursing. She is being d/c home today.
== END 2020-05-10 13:08 | disposition hospice, home (50) | DRG 871 ==
LOC: ER 18:56 → MEDS 22:28 → ENPENDDIS 05-10 09:25 → MEDS 05-10 13:08
PROVIDERS: Emergency Medicine; Hospitalist; Internal Medicine; Nurse Practitioner Acute Care; ADMIT Internal Medicine
DX: A41.9 Sepsis, unspecified organism (principal); G92 Toxic encephalopathy; K85.90 Acute pancreatitis without necrosis or infection, unspecified; E43 Unspecified severe protein-calorie malnutrition; J18.9 Pneumonia, unspecified organism; E87.1 Hypo-osmolality and hyponatremia; F33.2 Major depressive disorder, recurrent severe without psychotic features; F02.81 Dementia in other diseases classified elsewhere, unspecified severity, with behavioral disturbance; Z87.891 Personal history of nicotine dependence; Z51.5 Encounter for palliative care; E86.0 Dehydration; E83.52 Hypercalcemia; E87.6 Hypokalemia; R62.7 Adult failure to thrive; Z68.27 Body mass index [BMI] 27.0-27.9, adult; R73.9 Hyperglycemia, unspecified; E53.8 Deficiency of other specified B group vitamins; D63.8 Anemia in other chronic diseases classified elsewhere; G30.9 Alzheimer's disease, unspecified
CPT/HCPCS: 0097U; 36415; 51701; 70450; 71045; 74176; 76700; 80048; 80053; 80069; 81001; 82140; 82550; 82553; 82607; 82746; 82947; 83036; 83690; 83735; 83880; 84100; 84145; 84295; 84443; 84484; 85025; 85027; 87040; 87086; 92526; 92610; 93005; 93010; 96365-59; 99285-25; G0480; J0696; J1650; J1815; J1885; J1956; J2405; J3411; J3480; J7030; J7050; J7070; J7120